=== PATIENT | male | born 1990 | race Caucasian/White ===

== ENCOUNTER 2017-10-15 23:06 | Emergency (ER) | payer SELFPAY ==
[~2017-10-15] VITALS: Ht 167.6 cm; Wt 90.7 kg
[2017-10-15 23:37] LABS: BASOPHILS % (AUTO) 0 % (0-10); EOSINOPHILS # (AUTO) 0.4 10^3/uL (0.0-0.3); EOSINOPHILS % (AUTO) 3 % (0-10); HEMATOCRIT 41 % (40-54); HEMOGLOBIN 15.3 G/DL (13.3-17.7); LYMPHOCYTES # (AUTO) 3.6 X 10^3 (1.0-4.0); LYMPHOCYTES % (AUTO) 33 % (12-44); MEAN CORPUSCULAR HEMOGLOBIN 31 PG (25-34); MEAN CORPUSCULAR HGB CONC 37 G/DL (32-36); MEAN CORPUSCULAR VOLUME 83 FL (80-99); MEAN PLATELET VOLUME 9.2 FL (7.4-10.4); MONOCYTES # (AUTO) 0.7 X 10^3 (0.0-1.0); MONOCYTES % (AUTO) 7 % (0-12); NEUTROPHILS # (AUTO) 6.3 X 10^3 (1.8-7.8); NEUTROPHILS % (AUTO) 57 % (42-75); PLATELET COUNT 353 10^3/uL (130-400); RED BLOOD COUNT 4.95 10^6/uL (4.35-5.85); RED CELL DISTRIBUTION WIDTH 12.8 % (10.0-14.5)
--- NOTE | 2017-10-15 23:37 | ED Cough/URI ---
General Chief Complaint: Respiratory Problems Stated Complaint: SOA Nursing Triage Note: PATIENT WITH HX ASTHMA AMB TO ROOM 8 W/ C/O SOB X1 WEEK. 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 "OR [place]" --CLAIMS HE HAS NOT SEEN DR FOR ANY REASON IN OVER 2 YEARS Allergies and Home Medications Allergies Coded Allergies: No Known Drug Allergies (Unverified , 10/15/17) Patient Home Medication List Home Medication List Reviewed: Yes Constitutional: no symptoms reported EENTM: no symptoms reported Respiratory: see HPI, cough, short of breath, wheezing Cardiovascular: no symptoms reported Gastrointestinal: no symptoms reported Genitourinary: no symptoms reported Musculoskeletal: no symptoms reported Skin: no symptoms reported Psychiatric/Neurological: No Symptoms Reported Hematologic/Lymphatic: No Symptoms Reported Immunological/Allergic: no symptoms reported Past Hthqqmp-Tpokzl-Wndyel Hx Patient Social History Alcohol Use: Rarely Uses Recreational Drug Use: No Smoking Status: Current Everyday Smoker (1 PPD) Type Used: Cigarettes 2nd Hand Smoke Exposure: Yes Recent Foreign Travel: No Contact w/Someone Who Travel: No Recent Infectious Disease Expo: No Recent Hopitalizations: No Seasonal Allergies Seasonal Allergies: No Surgeries History of Surgeries: No Respiratory History of Respiratory Disorde: Yes (NO PROBLEMS WITH ASTHMA SINCE HIGH SCHOOL) Respiratory Disorders: Asthma Cardiovascular History of Cardiac Disorders: No Neurological History of Neurological Disord: No Genitourinary History of Genitourinary Disor: No Gastrointestinal History of Gastrointestinal Di: No Musculoskeletal History of Musculoskeletal Dis: No Endocrine History of Endocrine Disorders: No HEENT History of HEENT Disorders: No Cancer History of Cancer: No Psychosocial History of Psychiatric Problem: No Integumentary History of Skin or Integumenta: No Blood Transfusions History of Blood Disorders: No Physical Exam Vital Signs Vital Signs - First Documented 10/15/17 23:10 Temp 98.1 Pulse 100 Resp 24 B/P (MAP) 131/89 (103) Pulse Ox 98 O2 Delivery Room Air Capillary Refill : Less Than 3 Seconds General Appearance: WD/WN, no apparent distress, other (OCCASIONAL, HARSH, FORCED COUGH. STRONG ODOR OF CIGARETTES) HEENT: PERRL/EOMI, normal ENT inspection, TMs normal, pharynx normal Neck: non-tender, full range of motion, supple, normal inspection Respiratory: normal breath sounds, no respiratory distress, no accessory muscle use Cardiovascular: regular rate, rhythm, no murmur Gastrointestinal: non tender, soft Extremities: normal inspection, no pedal edema Neurologic/Psychiatric: vp rheumatology II-XII nml as tested, no motor/sensory deficits, alert, normal mood/affect, oriented x 3 Skin: normal color, warm/dry Progress/Results/Core Measures Suspected Sepsis Recent Fever Within 48 Hours: No Infection Criteria Present: Suspected New Infection New/Unexplained Altered Menta: No Sepsis Screen: Possible Sepsis Risk Sepsis Diagnosis: SIRS Temperature:98.1 Pulse: 100 Respiratory Rate: 24 Laboratory Tests 10/15/17 23:25: White Blood Count 11.0 Blood Pressure 131 /89 Mean: 103 Laboratory Tests 10/15/17 23:25: Creatinine 1.07, Platelet Count 353, Total Bilirubin 0.3 Results/Orders Lab Results Laboratory Tests Test 10/15/17 23:25 Range/Units White Blood Count 11.0 4.3-11.0 10^3/uL Red Blood Count 4.95 4.35-5.85 10^6/uL Hemoglobin 15.3 13.3-17.7 G/DL Hematocrit 41 40-54 % Mean Corpuscular Volume 83 80-99 FL Mean Corpuscular Hemoglobin 31 25-34 PG Mean Corpuscular Hemoglobin Concent 37 H 32-36 G/DL Red Cell Distribution Width 12.8 10.0-14.5 % Platelet Count 353 130-400 10^3/uL Mean Platelet Volume 9.2 7.4-10.4 FL Neutrophils (%) (Auto) 57 42-75 % Lymphocytes (%) (Auto) 33 12-44 % Monocytes (%) (Auto) 7 0-12 % Eosinophils (%) (Auto) 3 0-10 % Basophils (%) (Auto) 0 0-10 % Neutrophils # (Auto) 6.3 1.8-7.8 X 10^3 Lymphocytes # (Auto) 3.6 1.0-4.0 X 10^3 Monocytes # (Auto) 0.7 0.0-1.0 X 10^3 Eosinophils # (Auto) 0.4 H 0.0-0.3 10^3/uL Basophils # (Auto) 0.0 0.0-0.1 10^3/uL Sodium Level 140 135-145 MMOL/L Potassium Level 3.8 3.6-5.0 MMOL/L Chloride Level 106 98-107 MMOL/L Carbon Dioxide Level 23 21-32 MMOL/L Anion Gap 11 5-14 MMOL/L Blood Urea Nitrogen 15 7-18 MG/DL Creatinine 1.07 0.60-1.30 MG/DL Estimat Glomerular Filtration Rate > 60 BUN/Creatinine Ratio 14 Glucose Level 115 H 70-105 MG/DL Calcium Level 9.4 8.5-10.1 MG/DL Total Bilirubin 0.3 0.1-1.0 MG/DL Aspartate Amino Transf (AST/SGOT) 25 5-34 U/L Alanine Aminotransferase (ALT/SGPT) 45 0-55 U/L Alkaline Phosphatase 94 40-136 U/L Total Protein 7.5 6.4-8.2 GM/DL Albumin 4.3 3.2-4.5 GM/DL Micro Results Microbiology 10/15/17 Influenza Types A,B Antigen (JOE) - Final, Complete My Orders Orders - PETER GARZA DO Saline Lock/Iv-Start (10/15/17 23:31) Monitor-Rhythm Ecg Trace Only (10/15/17 23:31) Cbc With Automated Diff (10/15/17 23:31) Comprehensive Metabolic Panel (10/15/17 23:31) Influenza A And B Antigens (10/15/17 23:31) Benzonatate Capsule (Tessalon Perles) (10/15/17 23:45) Chest Pa/Lat (2 View) (10/16/17 00:01) Methylprednisolone Sod Succ (Solu-Medrol (10/16/17 00:00) Ceftriaxone Injection (Rocephin Injectio (10/16/17 00:00) Vital Signs/I&O Vital Sign - Last 12Hours 10/15/17 23:10 Temp 98.1 Pulse 100 Resp 24 B/P (MAP) 131/89 (103) Pulse Ox 98 O2 Delivery Room Air Capillary Refill : Less Than 3 Seconds Blood Pressure Mean: 103 Diagnostic Imaging Comments CXR--NO ACUTE PROCESS, PENDING RADIOLOGIST REVIEW Reviewed: Reviewed by Me Departure Impression Impression: Primary Impression: Acute bronchitis Disposition: HOME, SELF-CARE Condition: Stable Departure-Patient Inst. Referrals: NO,LOCAL PHYSICIAN (PCP/Family) Primary Care Physician Patient Instructions: Acute Bronchitis, Adult (DC), SMOKING CESSATION Add. Discharge Instructions: TYLENOL AND MOTRIN NEEDED FOR PAIN OR FEVER LOTS OF CLEAR LIQUIDS FOLLOW UP WITH DR OF CHOICE IN 3-4 DAYS IF NO BETTER All discharge instructions reviewed with patient and/or family. Voiced understanding. Scripts Benzonatate (Tessalon Perle) 100 Mg Capsule 1-2 TAB PO TID for Cough, #30 CAP Prov: PETER GARZA DO 10/16/17 Guaifenesin/Dextromethorphan (Mucinex Dm ER 1,200-60 mg Tab) 1 Each Tbmp.12hr 1 EACH PO BID for 10 Days, #20 EA Prov: KAYLAPETER Juan DO 10/16/17 Methylprednisolone (Medrol) 4 Mg Tab.ds.pk 4 MG PO UD, #1 PKG Prov: KAYLAPETER K DO 10/16/17 Doxycycline Monohydrate (Doxycycline Monohydrate) 100 Mg Capsule 100 MG PO BID, #20 CAP Prov: KAYLAPETER K DO 10/16/17 Albuterol Sulfate (PROAIR HFA) 1 Puff Puff 2 PUFF IH Q4H for BREATHING, #1 GM Prov: PETER GARZA DO 10/16/17 PETER GARZA DO Oct 15, 2017 23:37
[2017-10-15] MEDS ORDERED: BENZONATATE 100 MG (TESSALON) CAPSULE PO SCH (23:45)
[2017-10-15 23:54] LABS: ALANINE AMINOTRANSFERASE 45 U/L (0-55); ALBUMIN 4.3 GM/DL (3.2-4.5); ALKALINE PHOSPHATASE 94 U/L (40-136); BILIRUBIN,TOTAL 0.3 MG/DL (0.1-1.0); BUN/CREATININE RATIO 14; CALCIUM 9.4 MG/DL (8.5-10.1); CARBON DIOXIDE 23 MMOL/L (21-32); CHLORIDE 106 MMOL/L (98-107); CREATININE SERUM 1.07 MG/DL (0.60-1.30); GFR ESTIMATED > 60; GLUCOSE 115 MG/DL (70-105); POTASSIUM 3.8 MMOL/L (3.6-5.0); SODIUM 140 MMOL/L (135-145); TOTAL PROTEIN 7.5 GM/DL (6.4-8.2)
[2017-10-16] MEDS ORDERED: methylPREDNISolone 125 MG (Solu-MEDROL) VIAL IVP ONE
[2017-10-16] MEDS ORDERED: cefTRIAXone INJECTION 1,000 MG in NS (IVPB) 100 ML IV ONE ×2
[2017-10-16] MEDS ORDERED: DOXY100C42 PO (00:09)
[2017-10-16] MEDS ORDERED: METH4TAB PO (00:09)
[2017-10-16] MEDS ORDERED: RT-ALBUINH IH (00:09)
[2017-10-16] MEDS ORDERED: GUAI1TBM19 PO (00:10)
[2017-10-16] MEDS ORDERED: BENZ-13 PO (00:10)
[2017-10-16 01:51] VITALS: BP 131/89
--- NOTE | 2017-10-16 06:51 | Diagnostic Imaging Report ---
INDICATION: Cough and congestion x1 week. EXAMINATION: PA and lateral chest. FINDINGS: Heart and mediastinum are normal. Lungs are clear. There are no effusions or pneumothoraces. IMPRESSION: Negative chest. Dictated by: Dictated on workstation # [id number]
== END 2017-10-16 01:51 | disposition home or self-care (01) ==
LOC: ER 23:10
DX: J20.9 Acute bronchitis, unspecified (principal); J45.909 Unspecified asthma, uncomplicated; F17.210 Nicotine dependence, cigarettes, uncomplicated
CPT/HCPCS: 36415; 71046; 80053; 85025; 87804; 93041; 96365; 96375